=== PATIENT | female | born 1970 | race Caucasian/White ===

== ENCOUNTER 2021-05-05 11:00 | Emergency (ER) | payer OTHER ==
[~2021-05-05] VITALS: Ht 157.5 cm; Wt 124.3 kg
[~2021-05-05 11:00] MED LIST: CIPROFLOXACIN500 MG PO; DRAMAMINE25 MG PO
[2021-05-05] MEDS ORDERED: RAMIPRIL1.25 MG PO (11:16)
[2021-05-05] MEDS ORDERED: HYDROCORTISONE5 MG PO (11:16)
[2021-05-05] MEDS ORDERED: BUSPIRONE HCL7.5 MG PO (11:17)
[2021-05-05] MEDS ORDERED: DULOXETINE HCL40 MG PO (11:18)
[2021-05-05] MEDS ORDERED: FOLIC ACID0.8 M1 PO (11:18)
== END 2021-05-05 17:00 | disposition home or self-care (01) ==
LOC: ER 11:00
DX: K57.92 Diverticulitis of intestine, part unspecified, without perforation or abscess without bleeding (principal); K57.30 Diverticulosis of large intestine without perforation or abscess without bleeding; Z88.8 Allergy status to other drugs, medicaments and biological substances